=== PATIENT | male | born 1960 | race Caucasian/White ===

== ENCOUNTER 2017-06-23 10:17 | Emergency (ER) | payer OTHER ==
[~2017-06-23] VITALS: Ht 193 cm; Wt 125.0 kg
[2017-06-23] MEDS ORDERED: INDOCIN50 MG PO (11:19)
[2017-06-23] MEDS ORDERED: COLCHICINE0.6 M1 PO (11:19)
[2017-06-23 11:50] VITALS: BP 118/70
== END 2017-06-23 11:51 | disposition home or self-care (01) ==
LOC: EME 10:17
DX: M10.071 Idiopathic gout, right ankle and foot (principal); I10 Essential (primary) hypertension; E11.9 Type 2 diabetes mellitus without complications; I25.10 Atherosclerotic heart disease of native coronary artery without angina pectoris; N28.9 Disorder of kidney and ureter, unspecified; Z87.891 Personal history of nicotine dependence; Z86.73 Personal history of transient ischemic attack (TIA), and cerebral infarction without residual deficits
CPT/HCPCS: 99281; 99283

== ENCOUNTER 2017-08-16 06:48 | Emergency (ER) | payer OTHER ==
[~2017-08-16] VITALS: Ht 193 cm; Wt 126.9 kg
[~2017-08-16 06:48] MED LIST: COLCHICINE0.6 M1 PO; INDOCIN50 MG PO
[2017-08-16] MEDS ORDERED: FLEXERIL10 MG PO (08:49)
[2017-08-16] MEDS ORDERED: PERCOCET 5/31 TABLET PO (08:49)
[2017-08-16 09:18] VITALS: BP 132/72
== END 2017-08-16 09:26 | disposition home or self-care (01) ==
LOC: EME 06:48
DX: S16.1XXA Strain of muscle, fascia and tendon at neck level, initial encounter (principal); M62.838 Other muscle spasm
CPT/HCPCS: 71046; 72040; 73030; 99281; 99283

== ENCOUNTER 2017-08-26 19:19 | Inpatient (IN) | payer OTHER ==
[~2017-08-26] VITALS: Ht 193 cm; Wt 120.1 kg
[~2017-08-26 19:19] MED LIST changes: +FLEXERIL10 MG PO; +PERCOCET 5/31 TABLET PO
[2017-08-26 21:18] LABS: HEMATOCRIT 39.9 % (38.0-50.0); HEMOGLOBIN 13.8 G/DL (12.5-16.6); MCH 28.9 PG (29.0-34.0); MCHC 34.6 G/DL (30.0-36.0); MCV 83.6 FL (86-99); PLATELET COUNT 254 K/uL (156-360); RBC DIS.WIDTH-CV 15.5 % (11.8-14.6); RBC DIS.WIDTH-SD 46.6 % (39-53); RED BLOOD COUNT 4.77 M/uL (4.00-5.50); WHITE BLOOD COUNT 12.9 K/uL (4.1-10.2)
[2017-08-26 21:26] LABS: ALBUMIN 4.1 g/dL (3.2-4.8); CHLORIDE 96 mEq/L (99-109); POTASSIUM 3.9 mEq/L (3.7-5.4); SODIUM 130 mEq/L (136-147)
[2017-08-26 21:28] LABS: GLUCOSE 137 mg/dL (70-99); TOTAL PROTEIN 8.4 g/dL (6.4-8.3)
[2017-08-26 21:30] LABS: TOTAL BILIRUBIN 0.6 mg/dL (0.0-1.0)
[2017-08-26 21:32] LABS: ALKALINE PHOSPHATASE 74 IU/L (3-129); CREATININE 2.8 mg/dL (0.6-1.3); GFR ESTIMATE (CALCULATED) 25 mL/min/ (58.99-99999)
[2017-08-26 21:33] LABS: UREA NITROGEN (BUN) 46 mg/dL (9-23)
[2017-08-26 21:34] LABS: AST (GOT) 31 IU/L (2-34)
[2017-08-26 21:35] LABS: ALT (GPT) 24 IU/L (3-49)
[2017-08-26] MEDS ORDERED: BERBERINE PO (22:05)
[2017-08-26 22:06] LABS: C-REACTIVE PROTEIN 232.4 MG/L (0-10)
[2017-08-26] MEDS ORDERED: MUCINEX1200 MG PO (22:06)
[2017-08-26] MEDS ORDERED: LISINOPRIL40 MG PO (22:07)
[2017-08-26] MEDS ORDERED: GLUCOPHAGE500 MG PO (22:07)
[2017-08-26] MEDS ORDERED: LOZOL2.5 MG PO (22:08)
[2017-08-26] MEDS ORDERED: PRAVACHOL40 MG PO (22:08)
[2017-08-26] MEDS ORDERED: FENOFIBRATE48 MG PO (22:09)
[2017-08-26] MEDS ORDERED: GAVILAX8.5 GM PO (22:12)
[2017-08-26] MEDS ORDERED: PROSCAR5 MG PO (22:13)
[2017-08-26] MEDS ORDERED: GLIPIZIDE ER2.5 MG PO (22:16)
[2017-08-26] MEDS ORDERED: PROTONIX20 MG PO (22:17)
[2017-08-26] MEDS ORDERED: TOPROL XL50 MG PO (22:18)
[2017-08-26] MEDS ORDERED: MINIPRESS2 MG PO (22:19)
[2017-08-26] MEDS ORDERED: LORATADINE10 M3 PO (22:20)
[2017-08-26] MEDS ORDERED: LO-DOSE ASPIRIN81 M2 PO (22:21)
[2017-08-26] MEDS ORDERED: ALLOPURINOL300 MG PO (22:21)
[2017-08-26] MEDS ORDERED: PLAVIX75 MG PO (22:22)
[2017-08-26] MEDS ORDERED: NORVASC5 MG PO (22:22)
[2017-08-27 01:16] VITALS: BP 105/68
[2017-08-27 03:01] VITALS: BP 98/52
[2017-08-27 07:00] VITALS: BP 103/68
[2017-08-27 15:24] VITALS: BP 106/65
[2017-08-27 19:19] LABS: APPEARANCE CLEAR ((CLEAR)); BILIRUBIN NEGATIVE; BLOOD NEGATIVE; COLOR YELLOW ((YELLOW)); GLUCOSE (STRIP) NEGATIVE; KETONES NEGATIVE; LEUKOCYTES NEGATIVE; NITRITE NEGATIVE; PROTEIN (STRIP) NEGATIVE; SPECIFIC GRAVITY 1.013 (1.000-1.030); UROBILINOGEN 0.2 MG/DL (0.2-1.0)
[2017-08-27 23:03] VITALS: BP 128/60
[2017-08-28 07:06] LABS: CHLORIDE 99 MEQ/L (99-109); GFR ESTIMATE (CALCULATED) 52 mL/min/ (58.99-99999); GLUCOSE 115 mg/dL (70-99); PHOSPHORUS 2.6 mg/dL (2.5-4.9); SODIUM 136 MEQ/L (136-147); UREA NITROGEN (BUN) 26 mg/dL (9-23)
[2017-08-28 07:07] LABS: CREATININE 1.5 MG/DL (0.6-1.3)
[2017-08-28 07:25] VITALS: BP 111/71
[2017-08-28 10:04] LABS: HEMOGLOBIN A1c (GLYCOHEMOGLOB) 6.9 % (Below 5.7)
[2017-08-28 15:05] VITALS: BP 118/70
[2017-08-29 05:56] LABS: BASOPHIL (%) 0.5 % (0-1); BASOPHIL COUNT 0.1 K/uL (0-0.1); EOSINOPHIL COUNT 0.3 K/uL (0-0.3); HEMATOCRIT 38.6 % (38.0-50.0); HEMOGLOBIN 12.7 G/DL (12.5-16.6); IMMATURE GRANULOCYTE (%) 0.7 % (0.0-0.7); LYMPHOCYTE (%) 11.4 % (15-42); LYMPHOCYTE COUNT 1.1 K/uL (1.0-2.8); MCHC 32.9 G/DL (30.0-36.0); MONOCYTE (%) 9.7 % (3-12); MONOCYTE COUNT 0.9 K/uL (0-0.8); NEUTROPHIL (%) 74.7 % (45-76); NEUTROPHIL COUNT 7.1 K/uL (1.8-6.4); PLATELET COUNT 234 K/uL (156-360); RBC DIS.WIDTH-CV 15.4 % (11.8-14.6); RBC DIS.WIDTH-SD 47.8 % (39-53); RED BLOOD COUNT 4.54 M/uL (4.00-5.50); WHITE BLOOD COUNT 9.5 K/uL (4.1-10.2)
[2017-08-29 06:33] LABS: ALBUMIN 3.6 G/DL (3.2-4.8); CHLORIDE 101 MEQ/L (99-109); CREATININE 1.3 MG/DL (0.6-1.3); GFR ESTIMATE (CALCULATED) > 59 mL/min/ (58.99-99999); GLUCOSE 114 mg/dL (70-99); SODIUM 135 MEQ/L (136-147); UREA NITROGEN (BUN) 18 mg/dL (9-23)
[2017-08-29 07:00] VITALS: BP 116/72
[2017-08-29 15:00] VITALS: BP 127/73
[2017-08-29 23:26] VITALS: BP 135/70
[2017-08-30 05:47] LABS: HEMATOCRIT 36.9 % (38.0-50.0); HEMOGLOBIN 12.6 G/DL (12.5-16.6); MCH 28.4 PG (29.0-34.0); MCHC 34.1 G/DL (30.0-36.0); MCV 83.3 FL (86-99); PLATELET COUNT 279 K/uL (156-360); RBC DIS.WIDTH-CV 15.2 % (11.8-14.6); RBC DIS.WIDTH-SD 46.4 % (39-53); RED BLOOD COUNT 4.43 M/uL (4.00-5.50); WHITE BLOOD COUNT 8.9 K/uL (4.1-10.2)
[2017-08-30 06:29] LABS: ALBUMIN 3.7 G/DL (3.2-4.8); CHLORIDE 101 MEQ/L (99-109); CREATININE 1.2 MG/DL (0.6-1.3); GFR ESTIMATE (CALCULATED) > 59 mL/min/ (58.99-99999); GLUCOSE 144 mg/dL (70-99); PHOSPHORUS 2.3 mg/dL (2.5-4.9); POTASSIUM 4.3 MEQ/L (3.7-5.4); SODIUM 137 MEQ/L (136-147); UREA NITROGEN (BUN) 17 mg/dL (9-23)
[2017-08-30 07:06] VITALS: BP 119/83
[2017-08-30 15:50] VITALS: BP 122/71
[2017-08-30 20:34] LABS: C DIFF TOXIN NEGATIVE (NEGATIVE)
[2017-08-30 23:39] VITALS: BP 131/76
[2017-08-31 03:07] VITALS: BP 103/64
[2017-08-31 06:21] LABS: ALBUMIN 3.8 G/DL (3.2-4.8); CHLORIDE 101 MEQ/L (99-109); CREATININE 1.2 MG/DL (0.6-1.3); GFR ESTIMATE (CALCULATED) > 59 mL/min/ (58.99-99999); GLUCOSE 132 mg/dL (70-99); PHOSPHORUS 2.7 mg/dL (2.5-4.9); POTASSIUM 4.7 MEQ/L (3.7-5.4); SODIUM 138 MEQ/L (136-147); UREA NITROGEN (BUN) 17 mg/dL (9-23)
[2017-08-31 08:00] VITALS: BP 116/81
[2017-08-31] MEDS ORDERED: LINEZOLID600 MG PO (11:59)
[2017-08-31] MEDS ORDERED: Tylenol Extra Streng PO (12:05)
[2017-08-31] MEDS ORDERED: NOVOLOG 10100 UNITS/ SC (12:06)
== END 2017-08-31 16:13 | DRG 683 ==
LOC: EME 19:19 → 5EAST 23:46 → EDOF 23:46 → ENRESERV 23:49 → 5EAST 08-27 01:03
PROVIDERS: Hospitalist; Internal Medicine Nephrology; Physician Assistant
DX: N17.0 Acute kidney failure with tubular necrosis (principal); L03.116 Cellulitis of left lower limb; A46 Erysipelas; I95.9 Hypotension, unspecified; E11.21 Type 2 diabetes mellitus with diabetic nephropathy; E11.22 Type 2 diabetes mellitus with diabetic chronic kidney disease; I12.9 Hypertensive chronic kidney disease with stage 1 through stage 4 chronic kidney disease, or unspecified chronic kidney disease; N18.9 Chronic kidney disease, unspecified; M10.9 Gout, unspecified; R06.6 Hiccough; N40.0 Benign prostatic hyperplasia without lower urinary tract symptoms; I25.10 Atherosclerotic heart disease of native coronary artery without angina pectoris; I69.354 Hemiplegia and hemiparesis following cerebral infarction affecting left non-dominant side; E78.5 Hyperlipidemia, unspecified; Z22.322 Carrier or suspected carrier of Methicillin resistant Staphylococcus aureus; Z95.1 Presence of aortocoronary bypass graft; Z95.5 Presence of coronary angioplasty implant and graft; Z98.1 Arthrodesis status; Z87.11 Personal history of peptic ulcer disease; Z80.52 Family history of malignant neoplasm of bladder; Z83.3 Family history of diabetes mellitus
CPT/HCPCS: 73630; 76770; 80053; 80069; 81003; 82570; 82948; 83036; 83605; 84156; 84550; 85025; 85027; 86140; 87040; 87493; 87641; 93971; 93975; 97530 GP; 99281; 99285; J0690; J0744; J1644; J1815; J7030; Q0161

== ENCOUNTER 2017-10-06 17:48 | Observation (INO) | payer OTHER ==
[~2017-10-06] VITALS: Ht 193 cm; Wt 117.1 kg
[~2017-10-06 17:48] MED LIST changes: +ALLOPURINOL300 MG PO; +BERBERINE PO; +FENOFIBRATE48 MG PO; +GAVILAX8.5 GM PO; +GLIPIZIDE ER2.5 MG PO; +GLUCOPHAGE500 MG PO; +LINEZOLID600 MG PO; +LISINOPRIL40 MG PO; +LO-DOSE ASPIRIN81 M2 PO; +LORATADINE10 M3 PO; +LOZOL2.5 MG PO; +MINIPRESS2 MG PO; +MUCINEX1200 MG PO; +NORVASC5 MG PO; +NOVOLOG 10100 UNITS/ SC; +PLAVIX75 MG PO; +PRAVACHOL40 MG PO; +PROSCAR5 MG PO; +PROTONIX20 MG PO; +TOPROL XL50 MG PO; +Tylenol Extra Streng PO
[2017-10-06 18:58] LABS: HEMATOCRIT 38.2 % (38.0-50.0); HEMOGLOBIN 12.8 G/DL (12.5-16.6); MCH 28.8 PG (29.0-34.0); MCHC 33.5 G/DL (30.0-36.0); PLATELET COUNT 215 K/uL (156-360); RBC DIS.WIDTH-CV 15.9 % (11.8-14.6); RBC DIS.WIDTH-SD 49.7 % (39-53); RED BLOOD COUNT 4.44 M/uL (4.00-5.50); WHITE BLOOD COUNT 12.1 K/uL (4.1-10.2)
[2017-10-06 19:07] LABS: CHLORIDE 107 mEq/L (99-109); SODIUM 139 mEq/L (136-147)
[2017-10-06 19:09] LABS: GLUCOSE 91 mg/dL (70-99)
[2017-10-06 19:13] LABS: CREATININE 1.1 mg/dL (0.6-1.3); GFR ESTIMATE (CALCULATED) > 59 mL/min/ (58.99-99999)
[2017-10-06 19:14] LABS: UREA NITROGEN (BUN) 18 mg/dL (9-23)
[2017-10-06 19:21] LABS: TROP-I INTERPRETATION NEGATIVE; TROPONIN-I < 0.01 ng/mL (0.0-0.30)
[2017-10-06] MEDS ORDERED: GLIPIZIDE5 MG PO (22:14)
[2017-10-06] MEDS ORDERED: AMLODIPINE BESYL5 MG PO (22:24)
[2017-10-06] MEDS ORDERED: INDAPAMIDE2.5 MG PO (22:24)
[2017-10-06] MEDS ORDERED: FINASTERIDE5 MG PO (22:24)
[2017-10-06] MEDS ORDERED: LISINOPRIL40 MG PO (22:24)
[2017-10-06] MEDS ORDERED: METFORMIN HCL500 MG PO (22:25)
[2017-10-06] MEDS ORDERED: PANTOPRAZOLE SO20 MG PO (22:25)
[2017-10-06] MEDS ORDERED: CLOPIDOGREL75 MG PO (22:25)
[2017-10-06] MEDS ORDERED: PRAVASTATIN SOD40 MG PO (22:25)
[2017-10-06] MEDS ORDERED: METOPROLOL SUCC50 MG PO (22:26)
[2017-10-06] MEDS ORDERED: PRAZOSIN HCL2 MG PO (22:29)
[2017-10-06] MEDS ORDERED: COLCRYS0.6 MG PO (22:29)
[2017-10-06] MEDS ORDERED: CYCLOBENZAPRINE10 MG PO (22:29)
[2017-10-06] MEDS ORDERED: REFRESH TEARS15 ML BOTH EYES (22:31)
[2017-10-07 00:25] VITALS: BP 134/83
[2017-10-07 02:08] LABS: TROP-I INTERPRETATION NEGATIVE; TROPONIN-I < 0.01 ng/mL (0.0-0.30)
[2017-10-07 05:04] VITALS: BP 133/81
[2017-10-07 07:35] LABS: HEMATOCRIT 38.4 % (38.0-50.0); HEMOGLOBIN 12.6 G/DL (12.5-16.6); MCH 28.4 PG (29.0-34.0); MCHC 32.8 G/DL (30.0-36.0); MCV 86.7 FL (86-99); PLATELET COUNT 207 K/uL (156-360); RBC DIS.WIDTH-SD 51.4 % (39-53); RED BLOOD COUNT 4.43 M/uL (4.00-5.50); WHITE BLOOD COUNT 6.4 K/uL (4.1-10.2)
[2017-10-07 07:44] VITALS: BP 135/87
[2017-10-07 07:55] LABS: TROP-I INTERPRETATION NEGATIVE; TROPONIN-I < 0.01 ng/mL (0.0-0.30)
[2017-10-07 07:58] LABS: CHLORIDE 107 MEQ/L (99-109); CREATININE 1.1 MG/DL (0.6-1.3); GFR ESTIMATE (CALCULATED) > 59 mL/min/ (58.99-99999); GLUCOSE 91 mg/dL (70-99); POTASSIUM 3.7 MEQ/L (3.7-5.4); SODIUM 139 MEQ/L (136-147); UREA NITROGEN (BUN) 16 mg/dL (9-23)
[2017-10-07] MEDS ORDERED: NITROSTAT0.4 MG SL (10:43)
[2017-10-07 11:35] VITALS: BP 140/77
== END 2017-10-07 14:18 | disposition home or self-care (01) ==
LOC: EME 17:48 → EDOF 22:59 → ENRESERV 23:03 → 4SOUTH 10-07 00:25 → EDOF 10-07 00:27 → 4SOUTH 10-07 00:29 → ENPENDDIS 10-07 10:48 → 4SOUTH 10-07 14:18
PROVIDERS: Emergency Medicine; Hospitalist
DX: R07.9 Chest pain, unspecified (principal); I25.10 Atherosclerotic heart disease of native coronary artery without angina pectoris; Z95.5 Presence of coronary angioplasty implant and graft; D72.829 Elevated white blood cell count, unspecified; R91.8 Other nonspecific abnormal finding of lung field; E78.5 Hyperlipidemia, unspecified; I69.354 Hemiplegia and hemiparesis following cerebral infarction affecting left non-dominant side; I69.322 Dysarthria following cerebral infarction; I12.9 Hypertensive chronic kidney disease with stage 1 through stage 4 chronic kidney disease, or unspecified chronic kidney disease; N18.9 Chronic kidney disease, unspecified; E11.22 Type 2 diabetes mellitus with diabetic chronic kidney disease; E66.01 Morbid (severe) obesity due to excess calories; Z68.31 Body mass index [BMI] 31.0-31.9, adult; Z86.19 Personal history of other infectious and parasitic diseases; Z98.1 Arthrodesis status; Z80.52 Family history of malignant neoplasm of bladder; Z83.3 Family history of diabetes mellitus
CPT/HCPCS: 71045; 71250; 80048; 82948; 84484; 85027; 85379; 93005; 93971; 99281; 99285; G0378; J1650; J2270

== ENCOUNTER 2017-11-23 11:13 | Emergency (ER) | payer OTHER ==
[~2017-11-23] VITALS: Ht 193 cm; Wt 117.2 kg
[~2017-11-23 11:13] MED LIST changes: +AMLODIPINE BESYL5 MG PO; +CLOPIDOGREL75 MG PO; +COLCRYS0.6 MG PO; +CYCLOBENZAPRINE10 MG PO; +FINASTERIDE5 MG PO; +GLIPIZIDE5 MG PO; +INDAPAMIDE2.5 MG PO; +METFORMIN HCL500 MG PO; +METOPROLOL SUCC50 MG PO; +NITROSTAT0.4 MG SL; +PANTOPRAZOLE SO20 MG PO; +PRAVASTATIN SOD40 MG PO; +PRAZOSIN HCL2 MG PO; +REFRESH TEARS15 ML BOTH EYES
[2017-11-23 11:43] LABS: HEMATOCRIT 39.3 % (38.0-50.0); HEMOGLOBIN 13.2 G/DL (12.5-16.6); MCH 28.1 PG (29.0-34.0); MCHC 33.6 G/DL (30.0-36.0); MCV 83.8 FL (86-99); PLATELET COUNT 187 K/uL (156-360); RBC DIS.WIDTH-CV 15.1 % (11.8-14.6); RBC DIS.WIDTH-SD 45.7 % (39-53); RED BLOOD COUNT 4.69 M/uL (4.00-5.50); WHITE BLOOD COUNT 7.9 K/uL (4.1-10.2)
[2017-11-23 11:52] LABS: CHLORIDE 107 mEq/L (99-109)
[2017-11-23 11:53] LABS: SODIUM 141 mEq/L (136-147)
[2017-11-23 11:54] LABS: GLUCOSE 113 mg/dL (70-99)
[2017-11-23 11:58] LABS: CREATININE 1.4 mg/dL (0.6-1.3); GFR ESTIMATE (CALCULATED) 56 mL/min/ (58.99-99999)
[2017-11-23 11:59] LABS: UREA NITROGEN (BUN) 23 mg/dL (9-23)
[2017-11-23] MEDS ORDERED: BACTRIM,SEPT1 TABLET PO (12:04)
[2017-11-23 12:11] VITALS: BP 118/73
== END 2017-11-23 12:12 | disposition home or self-care (01) ==
LOC: EME 11:13
PROVIDERS: Nurse Practitioner Family
DX: L03.116 Cellulitis of left lower limb (principal); K21.9 Gastro-esophageal reflux disease without esophagitis; Z86.73 Personal history of transient ischemic attack (TIA), and cerebral infarction without residual deficits; Z79.84 Long term (current) use of oral hypoglycemic drugs; Z79.82 Long term (current) use of aspirin
CPT/HCPCS: 80048; 85027